=== PATIENT | male | born 1985 | race Two or more races ===

== ENCOUNTER → 2024-09-28 | Outpatient (CLI) | payer SELFPAY | END | disposition home or self-care (01) | LOC: LABSPEC 16:41 | PROVIDERS: Referring Provider Otolaryngology; Visit Provider Otolaryngology | DX: H92.12 Otorrhea, left ear (principal) | CPT/HCPCS: 87070; 87075; 87077; 87205 ==

== ENCOUNTER → 2024-10-09 | Outpatient (CLI) | payer SELFPAY ==
--- NOTE | 2024-10-09 14:55 | CT_ITS ---
PROCEDURE: ORB SELLA POST FOSSA EAR W/O 10/09/2024 REASON FOR EXAM: OTORRHEA, LEFT EAR TECHNIQUE: CT of the temporal bones without intravenous contrast. One or more dose reduction techniques were used (e.g., Automated exposure control, adjustment of the mA and/or kV according to patient size, use of iterative reconstruction technique). RADIATION DOSE SUMMARY: CTDlvol: 67.58 mGy DLP: 827.45 mGycm COMPARISON: None available FINDINGS: RIGHT SIDE: External ear: Normal in appearance. External auditory canal: Normal in appearance, without evidence of abnormal soft tissue or narrowing. Tympanic membrane: No evidence of thickening. Middle ear cavity: Normally aerated. No evidence of abnormal soft tissue. Scutum: Sharp Ossicles: Normal in appearance. No evidence of ossicular subluxation or erosion. Cochlea: Normal in appearance. Vestibule: Normal in appearance. No evidence of dehiscence. Internal auditory canal: Normal configuration. No flaring. Mastoid air cells: Normally aerated. TMJ: Normal in appearance. LEFT SIDE: External ear: Normal in appearance. External auditory canal: There is a small amount of debris in the left external auditory canal. Tympanic membrane: The left tympanic membrane is thickened. Middle ear cavity: There is fluid in the left middle ear cavity, including fluid in the Prussak space. Scutum: Sharp Ossicles: Normal in appearance. No evidence of ossicular subluxation or erosion. Cochlea: Normal in appearance. Vestibule: Normal in appearance. No evidence of dehiscence. Internal auditory canal: Normal configuration. No flaring. Mastoid air cells: There is a large amount of fluid in the left mastoid air cells.. TMJ: Normal in appearance. CT/Orb Sella Post Fossa Ear w/o IMPRESSION: Fluid in the left middle ear cavity, including in the Prussak space. The diffe rential diagnosis includes otitis media and cholesteatoma. There is no evidence of erosion of the left scutum. There is a large amount of fluid in left mastoid air cells. The left tympanic membrane is thickened. Reading [facility]
== END | disposition home or self-care (01) ==
PROVIDERS: Referring Provider Otolaryngology; Visit Provider Otolaryngology
DX: H92.12 Otorrhea, left ear (principal)
CPT/HCPCS: 70480

== ENCOUNTER → 2024-10-26 | Outpatient (CLI) | payer SELFPAY | END | disposition home or self-care (01) | PROVIDERS: Referring Provider Otolaryngology; Visit Provider Otolaryngology | DX: H92.10 Otorrhea, unspecified ear (principal) | CPT/HCPCS: 87070; 87075; 87077; 87186; 87205 ==